=== PATIENT | female | born 1940 | race Caucasian/White ===

== ENCOUNTER 2017-03-29 17:07 | Inpatient (IN) | payer MEDICARE ==
[~2017-03-29] VITALS: Ht 160 cm; Wt 68.6 kg
[2017-03-29] VITALS (7 sets, daily range): BP systolic 162–212; BP diastolic 74–126; PULSE 62–74; RESP 16–20; TEMP 98.4; O2SAT 96–99
[~2017-03-29 17:07] MED LIST: CLOP75 PO; COZA100T PO; EZET10 PO; FELO10TA PO; HYDRA25 PO; NEXI40CA PO; SYNT88TA PO; TOPR50TA PO
[2017-03-29] MEDS ORDERED: LOSA100T PO (17:36)
[2017-03-29] MEDS ORDERED: CLON0.1T PO (17:36)
[2017-03-29] MEDS ORDERED: AMLO10TA2 PO (17:36)
[2017-03-29] MEDS ORDERED: HYDR-3801 PO (17:36)
[2017-03-29] MEDS ORDERED: METO1TAB9 PO (17:36)
[2017-03-29] MEDS ORDERED: hydrALAZINE HCL 20 MG/ML VIAL IV PUSH ONE ×2 (19:00→22:00)
--- NOTE | 2017-03-29 19:17 | PD ---
HPI Chief Complaint: Abnormal Results Time Seen by Provider: 18:03 Travel History International Travel<30 days: No Contact w/Intl Traveler<30days: No Traveled to known affect area: No History of Present Illness HPI 76yo F with PMH of HTN, hypothyroidism presents to the ED with c/o feeling unwell, and nauseous since yesterday. She said she got call for low sodium by PMD today but does not remember what it was. Thinks it was about 120 and it was taken a week ago. Pt said she has headache, neck pain and epigastric abdominal pain since yesterday. Said she has had headache with elevated blood pressure and he blood pressure is elevated since yesterday. Denies any trauma, fever, vomiting, focal weakness or numbness. 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 PFSH Past Medical History Hx Anticoagulant Therapy: Yes Blood Disorders: No Anxiety: Yes (LORAZEPAM) Depression: No Heart Rhythm Problems: No Cancer: No Cardiac Catheterization: Yes (01/16) Cardiovascular Problems: Yes High Cholesterol: Yes Chest Pain: Yes (NOT AT THIS TIME, BUT UPON ARRIVAL TO ED) Congestive Heart Failure: No Coronary Artery Disease: Yes Diabetes: No Diminished Hearing: No Endocrine: Yes (HYPOTHYROID) Gastrointestinal Disorders: Yes (gerd) GERD: Yes Glaucoma: No Genitourinary: No Hepatitis: No Hiatal Hernia: Yes Hypertension: Yes Immune Disorder: Yes Implanted Vascular Access Dvce: Yes Medical other: Yes (reflux esophageal stricture arthritis neck and back problems) Musculoskeletal: Yes (OSTEOPENIA/LUMBAR) Neurologic: Yes (TIA 2000) Psychiatric: Yes Reproductive: No Respiratory: No Immunizations Current: Yes Sleep Apnea: Yes Thyroid Disease: Yes Menopausal: Yes Past Surgical History Abdominal Surgery: Yes (appendectomy) Body Medical Devices: surgical clips in neck Cardiac Surgery: Yes (cardiac stent) Cholecystectomy: Yes (12/25/14) Coronary Stent: Yes (X1 IN LVA) Ear Surgery: No Endocrine Surgery: No Eye Surgery: No Genitourinary Surgery: No Gynecologic Surgery: Yes (tubal Liagtion) Joint Replacement: No Oral Surgery: Yes (tonsillectomy) Pacemaker: No Thoracic Surgery: No Other Surgery: Yes (PARATHYROIDECTOMY, HIATAL HERNIA SX 12/25/14) Social History Alcohol Use: No Tobacco Use: No Substance Use: No Allergies-Medications (Allergen,Severity, Reaction): Coded Allergies: codeine (Unverified Adverse Reaction, Severe, HALLUCINATION, 03/29/17) Reported Meds & Prescriptions Reported Meds & Active Scripts Active Reported Clonidine (Clonidine HCl) 0.1 Mg Tab 0.1 Mg PO BID Hydralazine (Hydralazine HCl) 100 Mg Tab 100 Mg PO TID Take with meals Metoprolol Succinate ER 24 HR (Metoprolol Succinate) 50 Mg Tab 50 Mg PO DAILY Losartan (Losartan Potassium) 100 Mg Tab 100 Mg PO DAILY Amlodipine (Amlodipine Besylate) 10 Mg Tab 10 Mg PO DAILY Review of Systems Except as stated in HPI: all other systems reviewed are Neg Physical Exam Narrative GENERAL: 76yo F in mild distress. SKIN: Focused skin assessment warm/dry. HEAD: Atraumatic. Normocephalic. EYES: Pupils equal and round. No scleral icterus. No injection or drainage. ENT: No nasal bleeding or discharge. Mucous membranes pink and moist. NECK: Trachea midline. No JVD. CARDIOVASCULAR: Regular rate and rhythm. No murmur appreciated. RESPIRATORY: No accessory muscle use. Clear to auscultation. Breath sounds equal bilaterally. GASTROINTESTINAL: Abdomen soft, mild epigastric ttp. No rebound tenderness or guarding. MUSCULOSKELETAL: No obvious deformities. No clubbing. No cyanosis. No edema. NEUROLOGICAL: Awake and alert. No obvious cranial nerve deficits. Motor grossly within normal limits. Normal speech. PSYCHIATRIC: Appropriate mood and affect; insight and judgment normal. Data Data Last Documented VS Vital Signs Date Time Temp Pulse Resp B/P (MAP) Pulse Ox O2 Delivery O2 Flow Rate FiO2 03/29/17 21:18 69 16 212/86 (128) 97 Room Air 03/29/17 17:09 98.4 Orders Orders Complete Blood Count With Diff (03/29/17 18:59) Comprehensive Metabolic Panel (03/29/17 18:59) Prothrombin Time / Inr (Pt) (03/29/17 18:59) Act Partial Throm Time (Ptt) (03/29/17 18:59) Ct Brain W/O Iv Contrast(Rout) (03/29/17 ) Ct Abd/Pel W Iv Contrast(Rout) (03/29/17 ) Urinalysis - C+S If Indicated (03/29/17 18:59) Electrocardiogram (03/29/17 ) Hydralazine Inj (Apresoline Inj) (03/29/17 19:00) Admit Order (Ed Use Only) (03/29/17 21:22) Admit To Inpatient (03/29/17 ) Vital Signs (Adult) Q4H (03/29/17 21:26) Activity Oob With Assistance (03/29/17 21:26) Sodium Chlor 0.9% 1000 Ml Inj (Ns 1000 M (03/29/17 21:26) Sodium Chloride 0.9% Flush (Ns Flush) (03/29/17 21:30) Sodium Chloride 0.9% Flush (Ns Flush) (03/30/17 09:00) Ondansetron Inj (Zofran Inj) (03/29/17 21:30) Comprehensive Metabolic Panel (03/30/17 06:00) Complete Blood Count With Diff (03/30/17 06:00) Case Management Consult (03/29/17 21:26) Heparin Inj (Heparin Inj) (03/29/17 22:00) Naloxone Inj (Narcan Inj) (03/29/17 21:30) Docusate Sodium-Senna (Juliana-Colace) (03/30/17 09:00) Magnesium Hydroxide Liq (Milk Of Magnesi (03/29/17 21:30) Sennosides (Senokot) (03/29/17 21:30) Bisacodyl Supp (Dulcolax Supp) (03/29/17 21:30) Lactulose Liq (Lactulose Liq) (03/29/17 21:30) Inpatient Certification (03/29/17 ) Labs Laboratory Tests Test 03/29/17 19:10 White Blood Count 8.7 TH/MM3 Red Blood Count 4.83 MIL/MM3 Hemoglobin 14.6 GM/DL Hematocrit 41.5 % Mean Corpuscular Volume 85.9 FL Mean Corpuscular Hemoglobin 30.3 PG Mean Corpuscular Hemoglobin Concent 35.2 % Red Cell Distribution Width 12.4 % Platelet Count 253 TH/MM3 Mean Platelet Volume 7.3 FL Neutrophils (%) (Auto) 75.6 % Lymphocytes (%) (Auto) 16.9 % Monocytes (%) (Auto) 6.7 % Eosinophils (%) (Auto) 0.4 % Basophils (%) (Auto) 0.4 % Neutrophils # (Auto) 6.6 TH/MM3 Lymphocytes # (Auto) 1.5 TH/MM3 Monocytes # (Auto) 0.6 TH/MM3 Eosinophils # (Auto) 0.0 TH/MM3 Basophils # (Auto) 0.0 TH/MM3 CBC Comment DIFF FINAL Differential Comment Prothrombin Time 10.7 SEC Prothromb Time International Ratio 1.1 RATIO Activated Partial Thromboplast Time 27.3 SEC Urine Color LIGHT-YELLOW Urine Turbidity CLEAR Urine pH 7.5 Urine Specific [place] 1.005 Urine Protein TRACE mg/dL Urine Glucose (UA) NEG mg/dL Urine Ketones NEG mg/dL Urine Occult Blood NEG Urine Nitrite NEG Urine Bilirubin NEG Urine Urobilinogen LESS THAN 2.0 MG/DL Urine Leukocyte Esterase NEG Urine RBC LESS THAN 1 /hpf Urine WBC LESS THAN 1 /hpf Urine Squamous Epithelial Cells <1 /hpf Microscopic Urinalysis Comment CULT NOT INDICATED Blood Urea Nitrogen 10 MG/DL Creatinine 0.81 MG/DL Random Glucose 133 MG/DL Total Protein 7.8 GM/DL Albumin 4.1 GM/DL Calcium Level 10.1 MG/DL Alkaline Phosphatase 122 U/L Aspartate Amino Transf (AST/SGOT) 57 U/L Alanine Aminotransferase (ALT/SGPT) 115 U/L Total Bilirubin 1.1 MG/DL Sodium Level 118 MEQ/L Potassium Level 3.1 MEQ/L Chloride Level 79 MEQ/L Carbon Dioxide Level 26.8 MEQ/L Anion Gap 12 MEQ/L Estimat Glomerular Filtration Rate 69 ML/MIN [facility] Medical Decision Making Medical Screen Exam Complete: Yes Emergency Medical Condition: Yes Differential Diagnosis Hyponatremia vs. UTI vs. dehydration vs. ICH vs. tension headache vs. hypertensive emergency Narrative Course 76yo F here with multiple complaints including nausea, headache, abdominal pain , elevated blood pressure and possible hyponatremia. Pt seen at end of my shift and sign out to Dr. Snider to follow up labs, EKG, UA, CT brain, CT a/p and reevaluate. Diagnosis Primary Impression: Hyponatremia Sonal Lucia DO Mar 29, 2017 19:17
[2017-03-29 20:10] LABS: AUTOMATED NEUTROPHIL # 6.6 TH/MM3 (1.8-7.7); BASOPHIL % 0.4 % (0.0-2.0); EOSINOPHIL % 0.4 % (0.0-4.0); HEMATOCRIT 41.5 % (35.0-46.0); HEMO FLAGS DIFF FINAL; LYMPH % 16.9 % (9.0-44.0); LYMPHOCYTE # 1.5 TH/MM3 (1.0-4.8); MEAN CELL VOLUME 85.9 FL (80.0-100.0); MEAN CORPUSCULAR HEMOGLOBIN 30.3 PG (27.0-34.0); MEAN CORPUSCULAR HGB CONC 35.2 % (32.0-36.0); MONO % 6.7 % (0.0-8.0); NEUT % 75.6 % (16.0-70.0); PLATELET COUNT 253 TH/MM3 (150-450); RED BLOOD COUNT 4.83 MIL/MM3 (4.00-5.30); RED CELL DISTRIBUTION WIDTH 12.4 % (11.6-17.2); WHITE BLOOD COUNT 8.7 TH/MM3 (4.0-11.0)
[2017-03-29 20:14] LABS: BLOOD, URINE NEG (NEG); COMMENT (UR) CULT NOT INDICATED; CULTURE IF INDICATED CULT NOT INDICATED; GLUCOSE,URINE NEG (NEG); KETONE, URINE NEG (NEG); NITRITE,URINE NEG (NEG); PH, URINE 7.5 (5.0-8.5); SQUAMOUS EPITHELIAL CELL URINE <1 /hpf (0-5); URINE COLOR LIGHT-YELLOW (YELLW/STRAW)
[2017-03-29 20:29] LABS: APTT (PATIENT) 27.3 SEC (24.3-30.1); INTERNATIONAL NORMALIZED RATIO 1.1 RATIO; PROTHROMBIN TIME - PATIENT 10.7 SEC (9.8-11.6)
[2017-03-29 20:35] LABS: ANION GAP 12 MEQ/L (5-15)
[2017-03-29 20:42] LABS: ALKALINE PHOSPHATASE 122 U/L (45-117); ALT (GPT) 115 U/L (10-53); AST (GOT) 57 U/L (15-37); BICARBONATE 26.8 MEQ/L (21.0-32.0); BLOOD UREA NITROGEN 10 MG/DL (7-18); CHLORIDE 79 MEQ/L (98-107); GLOMERULAR FILTRATION RATE 69 ML/MIN (>89); POTASSIUM 3.1 MEQ/L (3.5-5.1); TOTAL BILIRUBIN ADULT 1.1 MG/DL (0.2-1.0)
[2017-03-29 20:43] LABS: SODIUM (NA) 118 MEQ/L (136-145)
[2017-03-29] MEDS ORDERED: SODIUM CHLOR 0.9% 1000 ML INJ 1,000 ML IV SCH (21:26)
[2017-03-29] MEDS ORDERED: NALOXONE HCL 0.4 MG/ML AMP IV PUSH PRN (21:30)
[2017-03-29] MEDS ORDERED: SENNOSIDES 8.6 MG TAB PO PRN (21:30)
[2017-03-29] MEDS ORDERED: LACTULOSE SYRUP 20 GM/30 ML CUP PO PRN (21:30)
[2017-03-29] MEDS ORDERED: ONDANSETRON HCL 4 MG/2 ML VIAL IVP PRN (21:30)
[2017-03-29] MEDS ORDERED: BISACODYL 10 MG SUPP RECTAL PRN (21:30)
[2017-03-29] MEDS ORDERED: MAGNESIUM HYDROXIDE SUSP 30 ML CUP PO PRN (21:30)
[2017-03-29] MEDS ORDERED: SODIUM CHLORIDE 0.9% FLUSH 10 ML FLUSH IV FLUSH PRN (21:30)
--- NOTE | 2017-03-29 21:33 | EKG ---
Date Performed: 03/29/2017 Time Performed: 19:41:15 PTAGE: 76 years EKG: Baseline artifact present Sinus rhythm NONSPECIFIC T-WAVE ABNORMALITY BORDERLINE ECG No significant change from prior electrocardiogram. PREVIOUS TRACING : 01/31/2015 01.39 DOCTOR: Alex Yip Interpretating Date/Time 03/29/2017 21:33:31
--- NOTE | 2017-03-29 21:38 | PD ---
Physical Exam Date Seen by Provider: Mar 29, 2017 Time Seen by Provider: 19:00 Narrative Patient was signed out to me by Dr. Lucia at change of shift. We're awaiting laboratory tests and CT scans. The patient presents stating that she was told to come in because she had a low sodium of 120. She also has several other vague complaints of head pain and pain in her whole body. A CT brain and abdomen pelvis was ordered as well. Data Data Last Documented VS Vital Signs Date Time Temp Pulse Resp B/P (MAP) Pulse Ox O2 Delivery O2 Flow Rate FiO2 03/29/17 21:18 69 16 212/86 (128) 97 Room Air 03/29/17 17:09 98.4 Orders Orders Complete Blood Count With Diff (03/29/17 18:59) Comprehensive Metabolic Panel (03/29/17 18:59) Prothrombin Time / Inr (Pt) (03/29/17 18:59) Act Partial Throm Time (Ptt) (03/29/17 18:59) Ct Brain W/O Iv Contrast(Rout) (03/29/17 ) Ct Abd/Pel W Iv Contrast(Rout) (03/29/17 ) Urinalysis - C+S If Indicated (03/29/17 18:59) Electrocardiogram (03/29/17 ) Hydralazine Inj (Apresoline Inj) (03/29/17 19:00) Admit Order (Ed Use Only) (03/29/17 21:22) Admit To Inpatient (03/29/17 ) Vital Signs (Adult) Q4H (03/29/17 21:26) Activity Oob With Assistance (03/29/17 21:26) Diet Heart Healthy (03/30/17 Breakfast) Sodium Chlor 0.9% 1000 Ml Inj (Ns 1000 M (03/29/17 21:26) Sodium Chloride 0.9% Flush (Ns Flush) (03/29/17 21:30) Sodium Chloride 0.9% Flush (Ns Flush) (03/30/17 09:00) Ondansetron Inj (Zofran Inj) (03/29/17 21:30) Comprehensive Metabolic Panel (03/30/17 06:00) Complete Blood Count With Diff (03/30/17 06:00) Case Management Consult (03/29/17 21:26) Heparin Inj (Heparin Inj) (03/29/17 21:30) Naloxone Inj (Narcan Inj) (03/29/17 21:30) Docusate Sodium-Senna (Juliana-Colace) (03/30/17 09:00) Magnesium Hydroxide Liq (Milk Of Magnesi (03/29/17 21:30) Sennosides (Senokot) (03/29/17 21:30) Bisacodyl Supp (Dulcolax Supp) (03/29/17 21:30) Lactulose Liq (Lactulose Liq) (03/29/17 21:30) Inpatient Certification (03/29/17 ) Labs Laboratory Tests Test 03/29/17 19:10 White Blood Count 8.7 TH/MM3 Red Blood Count 4.83 MIL/MM3 Hemoglobin 14.6 GM/DL Hematocrit 41.5 % Mean Corpuscular Volume 85.9 FL Mean Corpuscular Hemoglobin 30.3 PG Mean Corpuscular Hemoglobin Concent 35.2 % Red Cell Distribution Width 12.4 % Platelet Count 253 TH/MM3 Mean Platelet Volume 7.3 FL Neutrophils (%) (Auto) 75.6 % Lymphocytes (%) (Auto) 16.9 % Monocytes (%) (Auto) 6.7 % Eosinophils (%) (Auto) 0.4 % Basophils (%) (Auto) 0.4 % Neutrophils # (Auto) 6.6 TH/MM3 Lymphocytes # (Auto) 1.5 TH/MM3 Monocytes # (Auto) 0.6 TH/MM3 Eosinophils # (Auto) 0.0 TH/MM3 Basophils # (Auto) 0.0 TH/MM3 CBC Comment DIFF FINAL Differential Comment Prothrombin Time 10.7 SEC Prothromb Time International Ratio 1.1 RATIO Activated Partial Thromboplast Time 27.3 SEC Urine Color LIGHT-YELLOW Urine Turbidity CLEAR Urine pH 7.5 Urine Specific [place] 1.005 Urine Protein TRACE mg/dL Urine Glucose (UA) NEG mg/dL Urine Ketones NEG mg/dL Urine Occult Blood NEG Urine Nitrite NEG Urine Bilirubin NEG Urine Urobilinogen LESS THAN 2.0 MG/DL Urine Leukocyte Esterase NEG Urine RBC LESS THAN 1 /hpf Urine WBC LESS THAN 1 /hpf Urine Squamous Epithelial Cells <1 /hpf Microscopic Urinalysis Comment CULT NOT INDICATED Blood Urea Nitrogen 10 MG/DL Creatinine 0.81 MG/DL Random Glucose 133 MG/DL Total Protein 7.8 GM/DL Albumin 4.1 GM/DL Calcium Level 10.1 MG/DL Alkaline Phosphatase 122 U/L Aspartate Amino Transf (AST/SGOT) 57 U/L Alanine Aminotransferase (ALT/SGPT) 115 U/L Total Bilirubin 1.1 MG/DL Sodium Level 118 MEQ/L Potassium Level 3.1 MEQ/L Chloride Level 79 MEQ/L Carbon Dioxide Level 26.8 MEQ/L Anion Gap 12 MEQ/L Estimat Glomerular Filtration Rate 69 ML/MIN MDM Medical Record Reviewed: Yes Supervised Visit with BETTY: No Differential Diagnosis Metabolic arrangement versus hyponatremia versus uncontrolled hypertension versus abdominal pain. Narrative Course 76 year old female presents at the request of her primary care physician for a low sodium. The patient was also noted to have elevated blood pressure. She was given hydralazine 10 mg I V by Dr. Lucia. Her blood pressure has started to creep back up again in the 190s systolic. She'll be given a further dose of hydralazine. CT scan of the brain shows no evidence of acute process. The patient started to have a sodium of 118. Her potassium was also 3.1. Her LFTs are elevated. Previous LFTs we have are from 2015 which were normal at that time. Case was discussed with Dr. Escalante who will admit the patient to the [facility] hospitalist service. Diagnosis Primary Impression: Hyponatremia Additional Impressions: Hypokalemia Elevated transaminase level Uncontrolled hypertension Cephalgia Generalized pain Zeus Snider MD Mar 29, 2017 21:38
[2017-03-29] MEDS ORDERED: IOHEXOL 350 MG/ML 10 ML VIAL (for RAD DIAG) IVCONTRAST ONE (21:47)
--- NOTE | 2017-03-29 21:48 | RADRPT ---
EXAM DATE/TIME: 03/29/2017 21:29 [facility] COMPARISON: No previous studies available for comparison. INDICATIONS : Dizziness and weakness. Elevated blood pressure. RADIATION DOSE: 56.35 CTDIvol (mGy) ; Tabletop CT Head MEDICAL HISTORY : Cardiovascular disease. Hypertension. Hernia, hiatal.CVA. CAD. SURGICAL HISTORY : Tubal ligation. Appendectomy.Cholecystectomy. ENCOUNTER: Initial ACUITY: 1 day PAIN SCALE: 0/10 LOCATION: cranial TECHNIQUE: Multiple contiguous axial images were obtained of the head. Using automated exposure control and adj ustment of the mA and/or kV according to patient size, radiation dose was kept as low as reasonably a chievable to obtain optimal diagnostic quality images. DICOM format image data is available electro nically for review and comparison. FINDINGS: CEREBRUM: The ventricles are normal for age. No evidence of midline shift, mass lesion, hemorrhage or acute in farction. Diffuse decreased attenuation in the supratentorial white matter. No extra-axial fluid co llections are seen. POSTERIOR FOSSA: The cerebellum and brainstem are intact. The 4th ventricle is midline. The cerebellopontine angle i s unremarkable. EXTRACRANIAL: The visualized portion of the orbits is intact. SKULL: The calvaria is intact. No evidence of skull fracture. CONCLUSION: 1. No acute findings. No evidence of hemorrhage. 2. Diffuse decreased attenuation in the white matter characteristic of diffuse ischemic change. Scout Casillas MD on March 29, 2017 at 21:45 Board Certified Radiologist. This report was verified electronically.
--- NOTE | 2017-03-29 22:26 | RADRPT ---
EXAM DATE/TIME: 03/29/2017 21:35 [facility] COMPARISON: CT ABDOMEN & PELVIS W CONTRAST, January 01, 2015, 5:16. INDICATIONS : Abdominal pain and nausea. IV CONTRAST: 100 cc Omnipaque 350 (iohexol) IV ORAL CONTRAST: No oral contrast ingested. RADIATION DOSE: 7.15 CTDIvol (mGy) MEDICAL HISTORY : Cardiovascular disease. Hypertension. Hernia, hiatal.CVA. CAD. SURGICAL HISTORY : Tubal ligation. Cholecystectomy.Appendectomy. ENCOUNTER: Initial ACUITY: 1 day PAIN SCALE: 3/10 LOCATION: Bilateral abdomen TECHNIQUE: Volumetric scanning of the abdomen and pelvis was performed. Using automated exposure control and ad justment of the mA and/or kV according to patient size, radiation dose was kept as low as reasonably achievable to obtain optimal diagnostic quality images. DICOM format image data is available electro nically for review and comparison. FINDINGS: LOWER LUNGS: The visualized lower lungs are clear. There is a paraesophageal hernia. LIVER: Homogeneous density without lesion. There is no dilation of the biliary tree. Cholecystectomy.. SPLEEN: Normal size without lesion. PANCREAS: Within normal limits. KIDNEYS: Normal in size and shape. There is no mass, stone or hydronephrosis. ADRENAL GLANDS: Within normal limits. VASCULAR: There is no aortic aneurysm. BOWEL/MESENTERY: No dilated loops of small or large bowel. No evidence of free fluid. ABDOMINAL WALL: Within normal limits. RETROPERITONEUM: There is no lymphadenopathy. BLADDER: Moderate distention. Smooth clark. REPRODUCTIVE: Within normal limits. INGUINAL: There is no lymphadenopathy or hernia. MUSCULOSKELETAL: Moderate degenerative changes in the posterior elements of the lower lumbar spine. CONCLUSION: 1. Paraesophageal hernia with portion of the gastric fundus intrathoracic. 2. No dilated loops of small or large bowel. Scout Casillas MD on March 29, 2017 at 22:21 Board Certified Radiologist. This report was verified electronically.
[2017-03-29] MEDS ORDERED: cloNIDine HCL 0.1 MG TAB PO PRN (22:30)
--- NOTE | 2017-03-29 22:46 | HHI.HP ---
[facility] Service [facility] Primary Care Physician Sangita Cantu MD Admission Diagnosis hyponatremia, hypokalemia, elevated transaminase Diagnoses: Travel History International Travel<30 Days: No Contact w/Intl Traveler <30 Da: No Traveled to Known Affected Are: No History of Present Illness 76-year-old female with a past medical history significant for hypertension, CAD and hypothyroidism presents to the ED with a 1 day history of not feeling well since yesterday. The patient is confused during her interview. She is unable to tell me exactly why she is here. She states that her doctor told her she had a low sodium but is not sure if that happened on Tuesday or today. She also states that she has had high blood pressure all day yesterday and today and was seen by her doctor earlier today who sent her to the emergency department although she is not sure if it was for her low sodium or her high blood pressure. She is A&O 3 but is having difficulty remembering events over the past few days. The patient reports one episode of emesis last night but states it was secondary to having a boost when she is lactose intolerant. She denies any increase in water or liquid intake. On arrival to the emergency department the patient's blood pressure was 202/88. She states she took all of her medications this morning however missed her afternoon doses. Lab values significant for a sodium of 118, potassium of 3.1 and mild transaminitis. She denies any abdominal pain. The patient's only complaint currently is a headache with corresponding neck pain. Review of Systems Denies fever or chills Denies blurry vision, otorrhea, rhinorrhea Denies sore throat and cough No chest pain, palpitations, shortness of breath No abdominal pain Denies constipation/diarrhea/nausea/vomiting Denies muscle pain/weakness No rashes Past Family Social History Past Medical History Hypertension CAD Hypothyroidism Past Surgical History Cardiac catheterization with stent placement 1 in 2003 Cholecystectomy Appendectomy Hiatal hernia repair Reported Medications Reported Meds & Active Scripts Active Reported Clonidine (Clonidine HCl) 0.1 Mg Tab 0.1 Mg PO BID Hydralazine (Hydralazine HCl) 100 Mg Tab 100 Mg PO TID Take with meals Metoprolol Succinate ER 24 HR (Metoprolol Succinate) 50 Mg Tab 50 Mg PO DAILY Losartan (Losartan Potassium) 100 Mg Tab 100 Mg PO DAILY Amlodipine (Amlodipine Besylate) 10 Mg Tab 10 Mg PO DAILY Allergies: Coded Allergies: codeine (Unverified Adverse Reaction, Severe, HALLUCINATION, 03/29/17) Family History Denies family history of DM/CAD Social History Denies alcohol, tobacco and illicit drugs. Physical Exam Vital Signs Vital Signs Date Time Temp Pulse Resp B/P (MAP) Pulse Ox O2 Delivery O2 Flow Rate FiO2 03/29/17 22:15 74 16 162/74 (103) 99 Room Air 03/29/17 21:57 72 16 197/126 (149) 96 Room Air 03/29/17 21:30 66 16 185/81 (115) 97 Room Air 03/29/17 21:18 69 16 212/86 (128) 97 Room Air 03/29/17 20:21 70 16 193/86 (121) 98 Room Air 03/29/17 18:13 62 20 198/93 (128) 96 Room Air 03/29/17 17:09 98.4 64 16 202/88 (126) 98 Room Air Physical Exam GENERAL: female lying in bed SKIN: No rashes, ecchymoses or lesions. Cool and dry. HEAD: Atraumatic. Normocephalic. No temporal or scalp tenderness. EYES: Pupils equal round and reactive. Extraocular motions intact. No scleral icterus. No injection or drainage. ENT: Nose without bleeding, purulent drainage or septal hematoma. Throat without erythema, tonsillar hypertrophy or exudate. Uvula midline. Airway patent. NECK: Trachea midline. No JVD or lymphadenopathy. Supple, nontender, no meningeal signs. CARDIOVASCULAR: Regular rate and rhythm without murmurs, gallops, or rubs. RESPIRATORY: Clear to auscultation. Breath sounds equal bilaterally. No wheezes , rales, or rhonchi. GASTROINTESTINAL: Abdomen soft, non-tender, nondistended. No hepato-splenomegaly , or palpable masses. No guarding. MUSCULOSKELETAL: Extremities without clubbing, cyanosis, or edema. No joint tenderness, effusion, or edema noted. No calf tenderness. NEUROLOGICAL: Awake and alert. Cranial nerves II through XII intact. Motor and sensory grossly within normal limits. Normal speech. Laboratory Laboratory Tests Test 03/29/17 19:10 White Blood Count 8.7 Red Blood Count 4.83 Hemoglobin 14.6 Hematocrit 41.5 Mean Corpuscular Volume 85.9 Mean Corpuscular Hemoglobin 30.3 Mean Corpuscular Hemoglobin Concent 35.2 Red Cell Distribution Width 12.4 Platelet Count 253 Mean Platelet Volume 7.3 Neutrophils (%) (Auto) 75.6 Lymphocytes (%) (Auto) 16.9 Monocytes (%) (Auto) 6.7 Eosinophils (%) (Auto) 0.4 Basophils (%) (Auto) 0.4 Neutrophils # (Auto) 6.6 Lymphocytes # (Auto) 1.5 Monocytes # (Auto) 0.6 Eosinophils # (Auto) 0.0 Basophils # (Auto) 0.0 CBC Comment DIFF FINAL Differential Comment Prothrombin Time 10.7 Prothromb Time International Ratio 1.1 Activated Partial Thromboplast Time 27.3 Urine Color LIGHT-YELLOW Urine Turbidity CLEAR Urine pH 7.5 Urine Specific Placedo 1.005 Urine Protein TRACE Urine Glucose (UA) NEG Urine Ketones NEG Urine Occult Blood NEG Urine Nitrite NEG Urine Bilirubin NEG Urine Urobilinogen LESS THAN 2.0 Urine Leukocyte Esterase NEG Urine RBC LESS THAN 1 Urine WBC LESS THAN 1 Urine Squamous Epithelial Cells <1 Microscopic Urinalysis Comment CULT NOT INDICATED Blood Urea Nitrogen 10 Creatinine 0.81 Random Glucose 133 Total Protein 7.8 Albumin 4.1 Calcium Level 10.1 Alkaline Phosphatase 122 Aspartate Amino Transf (AST/SGOT) 57 Alanine Aminotransferase (ALT/SGPT) 115 Total Bilirubin 1.1 Sodium Level 118 Potassium Level 3.1 Chloride Level 79 Carbon Dioxide Level 26.8 Anion Gap 12 Estimat Glomerular Filtration Rate 69 Result Diagram: 03/29/17190903/29/171909 Caprini VTE Risk Assessment Caprini VTE Risk Assessment: Mod/High Risk (score >= 2) Caprini Risk Assessment Model Point Value = 1 Point Value = 2 Point Value = 3 Point Value = 5 Age 41-60 Minor surgery BMI > 25 kg/m2 Swollen legs Varicose veins or History of unexplained or recurrent spontaneous Oral contraceptives or hormone replacement Sepsis (< 1 month) Serious lung disease, including pneumonia (< 1 month) Abnormal pulmonary function Acute myocardial infarction Congestive heart failure (< 1 month) History of inflammatory bowel disease Medical patient at bed rest Age 61-74 Arthroscopic surgery Major open surgery (> 45 min) Laparoscopic surgery (> 45 min) Malignancy Confined to bed (> 72 hours) Immobilizing plaster cast Central venous access Age >= 75 History of VTE Family history of VTE Factor V Leiden Prothrombin [id number] Lupus anticoagulant Anticardiolipin antibodies Elevated serum homocysteine Heparin-induced thrombocytopenia Other congenital or acquired thrombophilia Stroke (< 1 month) Elective arthroplasty Hip, pelvis, or leg fracture Acute spinal cord injury (< 1 month) Prophylaxis Regimen Total Risk Factor Score Risk Level Prophylaxis Regimen 0-1 Low Early ambulation 2 Moderate Order ONE of the following: *Sequential Compression Device (SCD) *Heparin 5000 units SQ BID 3-4 Higher Order ONE of the following medications: *Heparin 5000 units SQ TID *Enoxaparin/Lovenox 40 mg SQ daily (WT < 150 kg, CrCl > 30 mL/min) *Enoxaparin/Lovenox 30 mg SQ daily (WT < 150 kg, CrCl > 10-29 mL/min) *Enoxaparin/Lovenox 30 mg SQ BID (WT < 150 kg, CrCl > 30 mL/min) AND/OR *Sequential Compression Device (SCD) 5 or more Highest Order ONE of the following medications: *Heparin 5000 units SQ TID (Preferred with Epidurals) *Enoxaparin/Lovenox 40 mg SQ daily (WT < 150 kg, CrCl > 30 mL/min) *Enoxaparin/Lovenox 30 mg SQ daily (WT < 150 kg, CrCl > 10-29 mL/min) *Enoxaparin/Lovenox 30 mg SQ BID (WT < 150 kg, CrCl > 30 mL/min) AND *Sequential Compression Device (SCD) Assessment and Plan Assessment and Plan Assessment/plan: 1. Hyponatremia/AMS Head CT negative for acute findings NS at 125 cc/hr Monitor BMP Fluid restriction 2. Hypokalemia K supplementation Monitor BMP 3. Hypertensive urgency Resume home antihypertensives Clonidine prn Monitor 4. Hypothyroidism Patient states she is on Synthroid however does not know the dose Restart once dosing clarified with patient's 5. CAD Patient reports she takes Plavix however this is not on her home medications Clarify and restart if needed FEN Heart healthy diet Electrolytes: as above NS + 40K at 125 cc/hr Heparin Case discussed with ER physician at length Order placed to confirm home medications as patient is currently altered Physician Certification 2 Midnight Certification Type: Admission for Inpatient Services Order for Inpatient Services The services are ordered in accordance with Medicare regulations or non- Medicare payer requirements, as applicable. In the case of services not specified as inpatient-only, they are appropriately provided as inpatient services in accordance with the 2-midnight benchmark. Estimated LOS (days): 2 2 days is the estimated time the patient will need to remain in the hospital, assuming treatment plan goals are met and no additional complications. Post-Hospital Plan: Not yet determined Gayatri Escalante MD Mar 29, 2017 22:46
[2017-03-29] MEDS: NS + KCL 40 MEQ INJ 1,000 ML IV SCH (23:01)
[2017-03-29] MEDS: HEPARIN SODIUM - SQ 10,000 UNITS/ML VIAL SQ SCH (23:26)
[2017-03-30] VITALS (7 sets, daily range): BP systolic 134–157; BP diastolic 60–79; PULSE 70–85; RESP 16–18; TEMP 96.9–98.4; O2SAT 94–98
[2017-03-30] MEDS: NS + KCL 40 MEQ INJ 1,000 ML IV SCH ×3 (04:39→20:26)
--- NOTE | 2017-03-30 08:16 | HHI.PR ---
Subjective Remarks More awake and alert , oriented back to her baseline. No abd cramps, no cramps in her legs or arms. Feels improving today. No n/v/d/c. Able to eat. Objective Vitals Vital Signs Date Time Temp Pulse Resp B/P (MAP) Pulse Ox O2 Delivery O2 Flow Rate FiO2 03/30/17 07:47 Room Air 03/30/17 04:05 98.1 70 17 157/64 (95) 98 03/30/17 01:14 97.9 72 16 154/68 (96) 97 03/30/17 00:49 03/29/17 22:15 74 16 162/74 (103) 99 Room Air 03/29/17 21:57 72 16 197/126 (149) 96 Room Air 03/29/17 21:30 66 16 185/81 (115) 97 Room Air 03/29/17 21:18 69 16 212/86 (128) 97 Room Air 03/29/17 20:21 70 16 193/86 (121) 98 Room Air 03/29/17 18:13 62 20 198/93 (128) 96 Room Air 03/29/17 17:09 98.4 64 16 202/88 (126) 98 Room Air I/O 03/29/17 03/29/17 03/29/17 03/30/17 03/30/17 03/30/17 07:00 15:00 23:00 07:00 15:00 23:00 Intake Total 240 ml Balance 240 ml Intake Oral 240 ml # Voids 2 # Bowel Movements 0 Result Diagram: 03/29/17190903/29/171909 Imaging Last Impressions Head CT 03/29/17 0000 Signed Impressions: Service Date/Time: Wednesday, March 29, 2017 21:29 - CONCLUSION: 1. No acute findings. No evidence of hemorrhage. 2. Diffuse decreased attenuation in the white matter characteristic of diffuse ischemic change. Scout Casillas MD Abdomen/Pelvis CT 03/29/17 0000 Signed Impressions: Service Date/Time: Wednesday, March 29, 2017 21:35 - CONCLUSION: 1. Paraesophageal hernia with portion of the gastric fundus intrathoracic. 2. No dilated loops of small or large bowel. Scout Casillas MD Objective Remarks GENERAL: female lying in bed CARDIOVASCULAR: Regular rate and rhythm without murmurs, gallops, or rubs. RESPIRATORY: Clear to auscultation. Breath sounds equal bilaterally. No wheezes , rales, or rhonchi. GASTROINTESTINAL: Abdomen soft, non-tender, nondistended. No hepato-splenomegaly , or palpable masses. No guarding. MUSCULOSKELETAL: Extremities without clubbing, cyanosis, or edema. No joint tenderness, effusion, or edema noted. No calf tenderness. NEUROLOGICAL: Awake and alert. Cranial nerves II through XII intact. Motor and sensory grossly within normal limits. Normal speech. A/P Assessment and Plan Hyponatremia. Na 118 on admission Acute metabolic encephalopathy 2/2 severe hyponatremia. Improving. Head CT negative for acute findings NS + 40K at 125 cc/hr Monitor BMP Fluid restriction Monitor Na closely for overcorrection Hypokalemia, improving Continue K supplementation NS + 40K at 125 cc/hr. 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 Chronic, patient follows with gen surg as OP regularly. Consider gen surgery consult if need. Hypertensive urgency Resume home antihypertensives Clonidine prn Monitor Hypothyroidism Patient states she is on Synthroid however does not know the dose Restart once dosing clarified with patient's CAD Patient reports she takes Plavix however this is not on her home medications Clarify and restart if needed Heart healthy diet DVT ppx Heparin Discussed with the patient, nurse DC plan : poss DC tomorrow if improved and electrolytes improved Diane Graves MD Mar 30, 2017 08:16
[2017-03-30 08:17] LABS: BASOPHIL % 0.2 % (0.0-2.0); EOSINOPHIL % 0.2 % (0.0-4.0); HEMATOCRIT 41.4 % (35.0-46.0); HEMO FLAGS DIFF FINAL; LYMPH % 19.9 % (9.0-44.0); LYMPHOCYTE # 1.7 TH/MM3 (1.0-4.8); MEAN CELL VOLUME 86.4 FL (80.0-100.0); MEAN CORPUSCULAR HEMOGLOBIN 30.3 PG (27.0-34.0); MEAN CORPUSCULAR HGB CONC 35.1 % (32.0-36.0); NEUT % 71.7 % (16.0-70.0); PLATELET COUNT 277 TH/MM3 (150-450); RED CELL DISTRIBUTION WIDTH 12.7 % (11.6-17.2); WHITE BLOOD COUNT 8.4 TH/MM3 (4.0-11.0)
[2017-03-30] MEDS: SODIUM CHLORIDE 0.9% FLUSH 10 ML FLUSH IV FLUSH SCH ×2 (09:00→20:31)
[2017-03-30 09:06] LABS: ALKALINE PHOSPHATASE 115 U/L (45-117); ALT (GPT) 91 U/L (10-53); ANION GAP 10 MEQ/L (5-15); AST (GOT) 35 U/L (15-37); BICARBONATE 24.6 MEQ/L (21.0-32.0); BLOOD UREA NITROGEN 12 MG/DL (7-18); CHLORIDE 86 MEQ/L (98-107); GLOMERULAR FILTRATION RATE 64 ML/MIN (>89); POTASSIUM 3.4 MEQ/L (3.5-5.1)
[2017-03-30 09:11] LABS: SODIUM (NA) 121 MEQ/L (136-145)
[2017-03-30] MEDS: hydrALAZINE HCL 100 MG TAB PO SCH ×3 (10:06→18:00)
[2017-03-30] MEDS: LOSARTAN 50 MG TAB PO SCH (10:07)
[2017-03-30] MEDS: METOPROLOL SUCCINATE 50 MG EXTENDED RELEASE TAB PO SCH (10:07)
[2017-03-30] MEDS: DOCUSATE SODIUM 50 MG/SENNA 8.6 MG TAB PO SCH ×2 (10:07→20:27)
[2017-03-30] MEDS: cloNIDine HCL 0.1 MG TAB PO SCH ×2 (10:07→20:27)
[2017-03-30] MEDS: HEPARIN SODIUM - SQ 10,000 UNITS/ML VIAL SQ SCH ×2 (10:14→20:25)
[2017-03-30 17:07] LABS: ALKALINE PHOSPHATASE 98 U/L (45-117); ALT (GPT) 70 U/L (10-53); ANION GAP 8 MEQ/L (5-15); AST (GOT) 25 U/L (15-37); BICARBONATE 24.1 MEQ/L (21.0-32.0); BLOOD UREA NITROGEN 15 MG/DL (7-18); CHLORIDE 96 MEQ/L (98-107); GLOMERULAR FILTRATION RATE 74 ML/MIN (>89); POTASSIUM 4.1 MEQ/L (3.5-5.1); SODIUM (NA) 128 MEQ/L (136-145); TOTAL BILIRUBIN ADULT 0.7 MG/DL (0.2-1.0)
[2017-03-31] MEDS: NS + KCL 40 MEQ INJ 1,000 ML IV SCH (05:04)
[2017-03-31 07:13] LABS: ALT (GPT) 61 U/L (10-53); ANION GAP 5 MEQ/L (5-15); AST (GOT) 19 U/L (15-37); BICARBONATE 23.9 MEQ/L (21.0-32.0); BLOOD UREA NITROGEN 15 MG/DL (7-18); CHLORIDE 103 MEQ/L (98-107); GLOMERULAR FILTRATION RATE 82 ML/MIN (>89); POTASSIUM 4.2 MEQ/L (3.5-5.1); SODIUM (NA) 132 MEQ/L (136-145)
[2017-03-31 07:16] LABS: ALKALINE PHOSPHATASE 87 U/L (45-117); TOTAL BILIRUBIN ADULT 0.8 MG/DL (0.2-1.0)
[2017-03-31 08:00] VITALS: BP 168/75; PULSE 69; RESP 18; TEMP 96.7; O2SAT 98
[2017-03-31] MEDS: LOSARTAN 50 MG TAB PO SCH (08:11)
[2017-03-31] MEDS: METOPROLOL SUCCINATE 50 MG EXTENDED RELEASE TAB PO SCH (08:11)
[2017-03-31] MEDS: SODIUM CHLORIDE 0.9% FLUSH 10 ML FLUSH IV FLUSH SCH (08:11)
[2017-03-31] MEDS: cloNIDine HCL 0.1 MG TAB PO SCH (08:11)
[2017-03-31] MEDS: hydrALAZINE HCL 100 MG TAB PO SCH (08:11)
[2017-03-31] MEDS: DOCUSATE SODIUM 50 MG/SENNA 8.6 MG TAB PO SCH (08:11)
--- NOTE | 2017-03-31 08:49 | HHI.DS ---
Discharge Summary Admission Date Mar 29, 2017 at 21:27 Discharge Date: Mar 31, 2017 Admitting Diagnosis hyponatremia, hypokalemia, elevated transaminase (1) Acute metabolic encephalopathy ICD Code: G93.41 - Metabolic encephalopathy (2) Nausea & vomiting ICD Code: R11.2 - Nausea with vomiting, unspecified Status: Acute (3) Hypokalemia ICD Code: E87.6 - Hypokalemia Status: Acute (4) Hyponatremia ICD Code: E87.1 - Hypo-osmolality and hyponatremia Status: Acute Procedures none Brief History - From Admission 76-year-old female with a past medical history significant for hypertension, CAD and hypothyroidism presents to the ED with a 1 day history of not feeling well since yesterday. The patient is confused during her interview. She is unable to tell me exactly why she is here. She states that her doctor told her she had a low sodium but is not sure if that happened on Tuesday or today. She also states that she has had high blood pressure all day yesterday and today and was seen by her doctor earlier today who sent her to the emergency department although she is not sure if it was for her low sodium or her high blood pressure. She is A&O 3 but is having difficulty remembering events over the past few days. The patient reports one episode of emesis last night but states it was secondary to having a boost when she is lactose intolerant. She denies any increase in water or liquid intake. On arrival to the emergency department the patient's blood pressure was 202/88. She states she took all of her medications this morning however missed her afternoon doses. Lab values significant for a sodium of 118, potassium of 3.1 and mild transaminitis. She denies any abdominal pain. The patient's only complaint currently is a headache with corresponding neck pain. CBC/BMP: 03/30/17 0750 03/31/17 0550 Significant Findings Laboratory Tests Test 03/29/17 19:10 03/30/17 07:50 03/30/17 16:30 03/31/17 05:50 Neutrophils (%) (Auto) 75.6 % (16.0-70.0) 71.7 % (16.0-70.0) Random Glucose 133 MG/DL (74-106) 113 MG/DL (74-106) Alkaline Phosphatase 122 U/L (45-117) Aspartate Amino Transf (AST/SGOT) 57 U/L (15-37) Alanine Aminotransferase (ALT/SGPT) 115 U/L (10-53) 91 U/L (10-53) 70 U/L (10-53) 61 U/L (10-53) Total Bilirubin 1.1 MG/DL (0.2-1.0) Sodium Level 118 MEQ/L (136-145) 121 MEQ/L (136-145) 128 MEQ/L (136-145) 132 MEQ/L (136-145) Potassium Level 3.1 MEQ/L (3.5-5.1) 3.4 MEQ/L (3.5-5.1) Chloride Level 79 MEQ/L (98-107) 86 MEQ/L (98-107) 96 MEQ/L (98-107) Estimat Glomerular Filtration Rate 69 ML/MIN (>89) 64 ML/MIN (>89) 74 ML/MIN (>89) 82 ML/MIN (>89) Mean Platelet Volume 6.8 FL (7.0-11.0) Imaging Last Impressions Head CT 03/29/17 0000 Signed Impressions: Service Date/Time: Wednesday, March 29, 2017 21:29 - CONCLUSION: 1. No acute findings. No evidence of hemorrhage. 2. Diffuse decreased attenuation in the white matter characteristic of diffuse ischemic change. Scout Casillas MD Abdomen/Pelvis CT 03/29/17 0000 Signed Impressions: Service Date/Time: Wednesday, March 29, 2017 21:35 - CONCLUSION: 1. Paraesophageal hernia with portion of the gastric fundus intrathoracic. 2. No dilated loops of small or large bowel. Scout Casillas MD PE at Discharge GENERAL: female in nad, ambulating in the room. CARDIOVASCULAR: Regular rate and rhythm without murmurs, gallops, or rubs. RESPIRATORY: Clear to auscultation. Breath sounds equal bilaterally. No wheezes , rales, or rhonchi. GASTROINTESTINAL: Abdomen soft, non-tender, nondistended. No hepato-splenomegaly , or palpable masses. No guarding. MUSCULOSKELETAL: Extremities without clubbing, cyanosis, or edema. No joint tenderness, effusion, or edema noted. No calf tenderness. NEUROLOGICAL: Awake and alert. Cranial nerves II through XII intact. Motor and sensory grossly within normal limits. Normal speech. Pt update on day of discharge Feels much better. She is ambulating in the room without any problems. Denies having abdominal cramps or pain in her legs. She is eating better no nausea or vomiting no diarrhea or constipation. Is alert and oriented back to her baseline. Wants to go home. Hospital Course 76-year-old female with a past medical history significant for hypertension, CAD and hypothyroidism presents to the ED with a 1 day history of not feeling well 1 Day C[facility] CENTER MANAGER. The patient is confused during her interview on admission. She is unable to tell me exactly why she is here. She states that her doctor told her she had a low sodium but is not sure if that happened on Tuesday or today. She also states that she has had high blood pressure for 2 days C[facility] CENTER MANAGER, was seen by her doctor earlier today who sent her to the emergency department although she is not sure if it was for her low sodium or her high blood pressure. She is A&O 3 but is having difficulty remembering events over the past few days. The patient reports one episode of emesis 1 day C[facility] C[facility] MANAGER but states it was secondary to having a boost when she is lactose intolerant. She denies any increase in water or liquid intake. On arrival to the emergency department the patient's blood pressure was 202/88. She states she took all of her medications in the morning [facility] CENTER MANAGER however missed her afternoon doses. Lab values significant for a sodium of 118, potassium of 3.1 and mild transaminitis on admission. She denies any abdominal pain. The patient's only complaint currently is a headache with corresponding neck pain. yulia herman splaced on IVF NS with KCl supplement also. Patient says she takes HCTZ but as need and not often. I discussed withthe patient to stop taking HCTZ. Na and K levels improvd, patient is back at her baseline. She was discharged home in stable condition. To follow-up with PCP and consultants as outpatient. Pt Condition on Discharge: Stable Discharge Disposition: Discharge Home Discharge Time: > 30 minutes Discharge Instructions DIET: Follow Instructions for: Heart Healthy Diet Activities you can perform: Regular-No Restrictions Follow up Referrals: PCP Follow-up - 2-3 Days Continued Medications: Amlodipine (Amlodipine) 10 Mg Tab 10 MG PO DAILY for Blood Pressure Management, #30 TAB 0 Refills Clonidine (Clonidine) 0.1 Mg Tab 0.1 MG PO BID for Blood Pressure Management, #60 TAB 0 Refills Hydralazine (Hydralazine) 100 Mg Tab 100 MG PO TID for Blood Pressure Management, TAB 0 Refills Take with meals Losartan (Losartan) 100 Mg Tab 100 MG PO DAILY for Blood Pressure Management, #30 TAB 0 Refills Metoprolol Succinate ER 24 HR (Metoprolol Succinate ER 24 HR) 50 Mg Tab 50 MG PO DAILY, #30 TAB 0 Refills Diane Graves MD Mar 31, 2017 08:49
== END 2017-03-31 11:29 | disposition home or self-care (01) | DRG 640 ==
LOC: NEPC 17:07 → NEDA 21:27 → N06B 03-30 01:03
PROVIDERS: ADMIT Hospitalist; ATTEND Hospitalist
DX: E87.1 Hypo-osmolality and hyponatremia (principal); G93.41 Metabolic encephalopathy; I10 Essential (primary) hypertension; E87.6 Hypokalemia; E03.9 Hypothyroidism, unspecified; I16.0 Hypertensive urgency; I25.10 Atherosclerotic heart disease of native coronary artery without angina pectoris; K44.9 Diaphragmatic hernia without obstruction or gangrene; K21.9 Gastro-esophageal reflux disease without esophagitis; G47.30 Sleep apnea, unspecified; R74.0 Nonspecific elevation of levels of transaminase and lactic acid dehydrogenase [LDH]; E73.9 Lactose intolerance, unspecified; H54.8 Legal blindness, as defined in USA; F41.9 Anxiety disorder, unspecified; Z86.73 Personal history of transient ischemic attack (TIA), and cerebral infarction without residual deficits; Z88.5 Allergy status to narcotic agent; Z95.5 Presence of coronary angioplasty implant and graft
CPT/HCPCS: 70450; 74177; 80053; 81001; 85025; 85610; 85730; 93005; 96374; J0360; J1644; J3480; Q9967